=== PATIENT | female | born 1950 | race Caucasian/White ===

== ENCOUNTER 2017-05-27 14:31 | Emergency (ER) | payer BC, OTHER ==
[~2017-05-27] VITALS: Ht 170.2 cm; Wt 56.5 kg
[2017-05-27 14:36] VITALS: Ht 170.2 cm; Wt 56.5 kg
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
--- NOTE | 2017-05-27 17:51 | RADRPT ---
PROCEDURE: XR Thoracic Spine. CLINICAL INDICATION: Back pain. TECHNIQUE: Three views. Frontal, lateral, and lateral swimmers. COMPARISON: None available FINDINGS: There is normal stature and alignment of the vertebrae. There is no fracture. There is no lytic or blastic lesion. There are degenerative changes with small osteophytes in the mid and upper thoracic spine. Vascular calcifications are present consistent with atherosclerosis. IMPRESSION: 1. Mild degenerative change. 2. Atherosclerosis. 3. No acute abnormality. RPTAT: QQ .Dharmesh Savage MD, MD Date Time Electronically viewed and signed by .Dharmesh Savage MD, MD on 05/27/2017 17:50 .R/
--- NOTE | 2017-05-27 17:52 | RADRPT ---
PROCEDURE: Xray left ribs. CLINICAL INDICATION: Trauma. Left rib pain. TECHNIQUE: Three views of the left ribs. COMPARISON: None available FINDINGS: The osseous structures and surrounding soft tissues of the left rib cage are intact. No acute fract ure is seen. No radiopaque foreign body is identified. There is calcification in the aorta consiste nt with atherosclerosis. Surgical clips are present in the right upper quadrant of the abdomen. IMPRESSION: 1. Unremarkable left ribs x-ray series. 2. Atherosclerosis. 3. Prior right upper quadrant abdomen surgery. RPTAT: QQ .Dharmesh Savage MD, Date Time Electronically viewed and signed by .Dharmesh Savage MD, on 05/27/2017 17:52 .R/
--- NOTE | 2017-05-27 17:53 | RADRPT ---
PROCEDURE: XR Chest. CLINICAL INDICATION: Trauma. Left chest pain. TECHNIQUE: Single frontal view. COMPARISON: None. FINDINGS: The lungs are clear. The heart size is normal. There is calcification in the aorta consistent with atherosclerosis. There is no pleural effusion. There is no pneumothorax. Surgical clips are present in the right upper quadrant of the abdomen. IMPRESSION: 1. Atherosclerosis. 2. Prior right upper quadrant abdomen surgery. 3. Clear lungs. 4. No pneumothorax. RPTAT: QQ .Dharmesh Savage MD, MD Date Time Electronically viewed and signed by .Dharmesh Savage MD, on 05/27/2017 17:52 .R/
[2017-05-27] MEDS ORDERED: NAPR-260 PO (18:07)
== END 2017-05-27 18:17 | disposition home or self-care (01) ==
LOC: FTE 14:31
DX: R07.81 Pleurodynia (principal)
CPT/HCPCS: 71010; 71100; 72072